=== PATIENT | female | born 1965 | race Caucasian/White ===

== ENCOUNTER 2019-09-20 20:06 | Emergency (ER) | payer SELFPAY ==
[2019-09-20] MEDS ORDERED: Ketorolac Tromethamine 30 MG/ML VIAL ONE (20:50)
[2019-09-20] MEDS ORDERED: traMADol HCl 50 MG TAB ONE (20:50)
[2019-09-20] MEDS ORDERED: Amoxicillin/Potassium Clav 875 MG TAB ONE (20:50)
== END 2019-09-20 21:04 | disposition home or self-care (01) ==
LOC: ERS 20:06
DX: K02.9 Dental caries, unspecified (principal); K03.81 Cracked tooth
CPT/HCPCS: 96372; 99282; J1885